=== PATIENT | female | born 1955 | race African-American/Black ===

== ENCOUNTER 2016-08-02 00:10 | Inpatient (IN) | payer OTHER ==
[2016-08-01 23:09] LABS: BASOPHIL% 0.4 % (0-2.5); EOSINOPHIL% 0.6 % (0.0-7.0); HEMATOCRIT 25.3 % (35.0-45.0); HEMOGLOBIN 7.4 gm/dL (12.0-16.0); LYMPHOCYTE# 1.3 X10e3 (1.0-3.5); LYMPHOCYTE% 18.5 % (17.0-45.0); MEAN CELL VOLUME 64.7 FL (83-96); MEAN CORPUSCULAR HGB CONC 29.4 g/dL (30-36); MEAN PLATELET VOLUME 8.7 FL (6.5-11.5); MONOCYTE# 0.4 X10e3 (0-1.0); MONOCYTE% 5.5 % (3.0-12.0); NEUTROPHIL# 5.4 X10e3 (1.5-7.1); PLATELET COUNT 294 X10e3 (140-420); RED BLOOD COUNT 3.92 X10e (3.90-5.30); RED CELL DISTRIBUTION WIDTH 18.7 % (11.0-15.5); WHITE BLOOD COUNT 7.1 X10e3 (4.0-10.5)
[2016-08-01 23:10] LABS: DIFF IND YES
[2016-08-01 23:33] LABS: ALBUMIN SERUM 4.3 g/dL (3.5-5.0); ALKALINE PHOSPHATASE 67 U/L (32-92); ALT (SGPT) 12 U/L (10-40); AST (SGOT) 21 U/L (10-42); BILIRUBIN, DIRECT 0.1 mg/dL (0.0-0.2); BILIRUBIN,INDIRECT 0.3 mg/dL (0.0-0.9); BILIRUBIN,TOTAL 0.4 mg/dL (0.2-2.0); BLOOD UREA NITROGEN 16 mg/dL (9-23); CALCIUM SERUM 8.9 mg/dL (8.4-10.2); CARBON DIOXIDE 25 mmol/L (22-31); CHLORIDE 107 mmol/L (100-111); CREATININE SERUM 0.8 mg/dL (0.6-1.4); GLOM FILT RATE Estimated ABOVE60 mL/min (>60); GLUCOSE FASTING 94 mg/dL (70-110); LIPASE 28 U/L (22-51); POTASSIUM 3.8 mmol/L (3.5-5.1); SODIUM 136 mmol/L (135-145)
[2016-08-01 23:51] LABS: ANISOCYTOSIS MOD; HYPOCHROMIA SL; PLATELET ESTIMATE NORMAL (NORMAL); POIKILOCYTOSIS SL
[2016-08-01 23:52] LABS: TARGET CELLS SL
--- NOTE | ~2016-08-02 | CT2 ---
[facility] A Service of [facility] RADIOLOGY TEXT RESULTS PATIENT: LOCO SAINI LOCATION: C2A 219- : 53 UNIT #: [id number] AGE: [address]: Zhou Nguyen MD SEX: F ORDER DR: [id number] [facility] [address]. [place], [place] [address] [id number] I MR#: [id number] Acc #: [id number] NAME: LOCO SAINI : 1955 SEX: F STUDY DATE/TIME: 08/02/2016 2:28 UNIT: C2A ROOM: 219 STUDY DESCRIPTION: CT Abd and Pelv W Cont Attending Physician: Zhou Nguyen M.D. Ordering Physician: Ed Doctor [id number] [facility] Primary Care Physician: [facility] MEDICAL IMAGING REPORT This report is preliminary unless electronic signature is present EXAM CT abdomen and pelvis 08/02/2016 INDICATION Right lower quadrant pain and back pain with burning with a bowel movement that started at 1 o'clock yesterday afternoon. History of colitis. TECHNIQUE Axial images were obtained through the abdomen and pelvis following oral and IV contrast administration. Multiplanar reformats were obtained. This CT exam was performed with one or more of the following radiation dose reduction techniques: automatic exposure control, adjustment of mA and/or kV according to patient size, and iterative reconstruction. COMPARISON Comparison made 08/09/2015. FINDINGS ABDOMEN: There is a calcified granuloma in the right lower lobe. Lung bases are otherwise clear. Gallbladder is normal. No biliary obstruction is seen. Tiny low-density lesions in the right hepatic lobe are likely cysts. These are not significantly changed. Solid organs are otherwise normal. No adenopathy or free fluid. GI tract is normal. PELVIS: The appendix is normal. The remainder of the GI tract is normal as well. There is nothing to suggest colitis. There is a 1.8 cm left ovarian cyst. This is unchanged. Lobular contour to the uterus is presumably due to leiomyomata. Urinary bladder is normal. There is degenerative disease in the lumbar spine. IMPRESSION 1. No acute findings in the abdomen or pelvis. 2. The GI tract including the appendix is within normal limits. [facility]. [facility] A Service of [facility] RADIOLOGY TEXT RESULTS PATIENT: LOCO SAINI LOCATION: C2A 219-01 : 53 UNIT #: [id number] AGE: [address]: Zhou Nguyen MD SEX: F ORDER DR: 3. Fibroid uterus. 4. Stable 1.8 cm left ovarian cysts. 5. Stable tiny hypodense lesions in the liver which are likely small benign cysts. Dictated by... Jace Malave Jr., M.D. THIS IS AN ELECTRONICALLY VERIFIED REPORT Jace Malave Jr., M.D. at 08/05/2016 6:03 AM PJ/nidhi TD: 08/02/2016 11:10 JOB #: [id number] MEDICAL IMAGING REPORT COPY
--- NOTE | ~2016-08-02 | CO ---
Unit #: [id number] #: [id number] Patient: LOCO SAINI [id number] [address] [address] [id number] I MR#: [id number] NAME: LOCO SAINI ROOM: 219 Age: 60 Sex: F Admission Date: 08/02/2016 : 1955 Attending Physician: Zhou Nguyen M.D. Primary Care Physician: [facility] Consultation Date: 08/02/2016 CONSULTATION REPORT REASON FOR CONSULTATION Severe iron deficiency anemia and right flank pain. HISTORY OF PRESENT ILLNESS The patient is a 50-year-old female with a past medical history of hypertension, migraine headaches, bipolar disorder and ischemic colitis. The patient has presented with acute right flank pain and anemia. The patient was admitted to this facility about a year ago with similar pain, but associated with rectal bleeding. She had undergone colonoscopy at the time and was found to have ischemic colitis. Since then the patient had been asymptomatic and had been doing well up until yesterday afternoon, when she developed acute right flank pain after having a bowel movement. The pain was constant and progressively worsened. Therefore, the patient presented to the emergency room for evaluation. Upon admission she was noted to have a hemoglobin of 7.4 with microcytic (1) . The patient reports fatigue, but no history of fever, chills, diarrhea, constipation, anorexia, weight loss or overt GI bleed in the form of hematemesis, melena or hematochezia. PAST MEDICAL HISTORY 1. Hypertension. 2. Bipolar disorder. 3. ADHD. 4. Migraine headaches. 5. Ischemic colitis. PAST SURGICAL HISTORY 1. Right cataract extraction. 2. Excision of right renal cyst. 3. Colonoscopy in 2016. SOCIAL HISTORY The patient lives with her ex-. She smokes less than a half pack of cigarettes daily. She drinks alcohol seldomly. No history of illicit drug use. FAMILY HISTORY None for colon, pancreatic cancer or liver disease. ALLERGIES No known drug allergies. HOME MEDICATIONS 1. Adderall. Unit #: [id number] #: [id number] Patient: LOCO SAINI 2. Lopressor. 3. Lisinopril. 4. Hydrochlorothiazide. 5. Depakote. 6. Clonidine. 7. Celexa. 8. Protonix. 9. Claritin. 10. Flonase. REVIEW OF SYSTEMS Twelve point review of systems was completed and only positive findings as noted in history of present illness. All other systems were reviewed and are negative. PHYSICAL EXAMINATION GENERAL: The patient is awake, alert and oriented. Comfortable. In no acute distress. VITALS: Stable with temperature 98, blood pressure 150/71, heart rate 59, respiratory rate 16. HEENT: No pallor. No scleral icterus. No lymphadenopathy. No peripheral edema. CHEST: Clear to auscultation bilaterally. HEART: Regular rate and rhythm. ABDOMEN: Soft and nontender. Liver and spleen not palpable. Bowel sounds normal. Slight tenderness with palpation to the low right flank. DIAGNOSTIC STUDIES IMAGING: CT of the abdomen and pelvis showed no acute findings. LABORATORY: CMP within normal limits. CBC notable for hemoglobin 6.8, initially 7.4 upon admission. The patient received one unit of packed red blood cells. Awaiting repeat CBC. MCV 64.7, MCH 18.6, platelets 240. Serum iron 5, ferritin 3 and 1% saturation. Urinalysis notable for 1+ leukocyte esterase and 5-10 WBCs. Negative for bacteria. ASSESSMENT 1. Severe iron deficiency anemia. 2. Right flank pain. 3. History of ischemic colitis. PLAN Severe iron deficiency anemia most likely secondary to chronic GI blood loss. Etiology for right flank pain is unclear at this time. Recurrent ischemic colitis is unlikely. In view of her iron deficiency anemia will recommend an upper GI endoscopy as well as repeat colonoscopy to rule out potential source of chronic GI blood loss. Will recheck hemoglobin and transfuse as needed. Will also order IV iron as well. The patient and plan of care were discussed in detail with Dr. Hale. Further recommendations to follow. Thank you very much for asking us to see this patient. We appreciate the consult. Dictated by... Wally Ortiz APRN for Vladislav Hale M.D. Unit #: [id number] #: [id number] Patient: LOCO SAINI PN/gz TD: 08/03/2016 09:35 JOB #: [id number] CONSULTATION REPORT X X CONSULTATION REPORT
--- NOTE | ~2016-08-02 | DS ---
Unit #: [id number] #: [id number] Patient: LOCO SAINI [id number] [facility] [address] [facility]. [place], [place] [address] [id number] I MR#: [id number] NAME: LOCO SAINI ROOM: 219 Age: 60 Sex: F Admission Date: 08/02/2016 : 1955 Discharge Date: 08/04/2016 Attending Physician: Zhou Nguyen M.D. Primary Care Physician: [facility], [facility] DISCHARGE SUMMARY ADMISSION DIAGNOSIS Microcytic anemia with right flank pain. DISCHARGE DIAGNOSES 1. Microcytic anemia secondary to iron deficiency. 2. Right flank pain, improved. 3. Migraine headache. 4. History of bipolar disorder. CONSULTANTS Dr. Vladislav Hale in GI consultation. PROCEDURES PERFORMED 1. The patient had an EGD done which revealed mild esophagitis and gastritis. 2. The patient had a colonoscopy done which was a normal examination. DIAGNOSTIC DATA LABORATORY: Creatinine 0.9, sodium 143, potassium 4.1. White blood cell count 4.3, hemoglobin 7.2. Platelet count was 236. Urine culture was done, which revealed less than 10,000 units growth. Vitamin B12 level was 508 and ferritin level was 3. Reticulocyte count was 1.6. IMAGING: CT scan of the abdomen and pelvis was done, which did not reveal any acute findings in the abdomen or pelvis. She had a stable 1.8 cm left ovarian cyst present. There was a stable tiny hypodense lesion in the liver, likely small benign cyst. HOSPITAL COURSE The patient is a 60-year-old female who presented to [facility] with anemia. Details are as per admission history and physical. The patient was treated with IV iron. Her hemoglobin is 7.2 today. We will transfuse her with 1 unit prior to discharge. The patient is advised to follow up with Dr. Vladislav Hale. The patient is much improved. CT scan did not reveal any acute findings. I advised the patient to follow up with primary care physician. The patient has already received one unit of packed red blood cells and we will transfuse her one more unit prior to discharge. PHYSICAL EXAMINATION GENERAL: Today the patient is comfortable. She is not in acute distress. Unit #: [id number] #: [id number] Patient: LOCO SAINI VITALS: Temperature 98, pulse 61 per minute, respiratory rate 16 per minute, blood pressure 135/76. HEENT: No conjunctival congestion. Sclerae are nonicteric. NECK: Supple. Trachea central. LUNGS: Breath sounds equal bilaterally. There are no wheezes or crackles. HEART: Regular rate and rhythm. S1 and S2. ABDOMEN: Soft and nontender. Bowel sounds are present in all four quadrants. NEUROLOGIC: The patient is alert to person, place and time. Power is 5/5 bilaterally. Sensations are grossly intact. SKIN: Warm and dry. DISCHARGE CONDITION Stable. ACTIVITY As tolerated. DISCHARGE MEDICATIONS 1. Adderall 30 mg p.o. daily, home dose. 2. Flonase 2 sprays each nostril b.i.d. 3. Depakote 500 mg p.o. t.i.d. 4. Celexa 20 mg p.o. daily. 5. Claritin 10 mg p.o. daily. 6. Toprol XL 50 mg 1 pill p.o. daily. 7. Clonidine 0.1 mg p.o. b.i.d. 8. Lisinopril 40 mg p.o. daily. 9. Protonix 40 mg p.o. daily. FOLLOWUP 1. The patient is advised to follow up with primary care physician in one week and have a CBC and BMP done. 2. The patient is advised to follow up with Dr. Vladislav Hale in three to four weeks. The plan was discussed in detail with the patient, who showed complete understanding. Dictated by... Uche Chan TD: 08/04/2016 13:41 JOB #: [id number] CC: Vladislav Hale M.D. [facility], [facility] Unit #: [id number] #: [id number] Patient: LOCO SAINI DISCHARGE SUMMARY X Zhou Nguyen MD DISCHARGE SUMMARY
--- NOTE | ~2016-08-02 | EKG ---
PATIENT: LOCO SAINI UNIT #: [id number] Ventricular Rate: 56 BPM Atrial Rate: 56 BPM P-R Interval: 202 ms QRS Duration: 74 ms Q-T Interval: 436 ms QTC Calculation(Bezet): 420 ms P [place]: 10 degrees Calculated R [place]: 46 degrees Calculated T [place]: 42 degrees Diagnosis Line: Sinus bradycardia Diagnosis Line: Minimal voltage criteria for LVH, may be normal Diagnosis Line: variant Diagnosis Line: Septal infarct , age undetermined Diagnosis Line: Abnormal ECG Diagnosis Line: When compared with ECG of 11-JAN-2015 15:19, Diagnosis Line: Septal infarct is now Present Diagnosis Line: T wave inversion now evident in Anterior leads Diagnosis Line: Confirmed by MIMI MCFARLAND MD ([id number]) on 08/03/2016 Diagnosis Line: 6:02:34 PM INTERPRETING MD: BRUNA MAST
--- NOTE | ~2016-08-02 | CO ---
Unit #: [id number] #: [id number] Patient: LOCO ORTIZ [id number] [address] [place], [place] [address] [id number] MR#: [id number] NAME: LOCO ORTIZ ROOM: 219 Age: 60 Sex: F Admission Date: 08/02/2016 : 1955 Attending Physician: Zhou Nguyen M.D. Primary Care Physician: [facility], [facility] Consultation Date: 08/02/2016 CONSULTATION REPORT ADDENDUM This is an addendum to a consultation already dictated by Dr. Gefofrey Ferrera's A.P.R.N. REASON FOR CONSULTATION Severe iron deficiency anemia and right flank pain. Ms. Ortiz is a very pleasant 50-year-old -Israeli female who has presented with severe iron deficiency anemia. It is noteworthy the patient has a history of ischemic colitis in the past but never followed up. Current CAT scan shows some CT changes and it is possible the patient may have recurrent ischemic colitis. A diagnostic upper endoscopy and a colonoscopy are warranted and will be scheduled for tomorrow. Incidentally, the patient has virtually no iron reserves and is being started on intravenous iron infusions as well. Thank you for asking me to see this pleasant woman. I appreciate the consult. Dictated by... Uche Whitley/simi TD: 08/04/2016 07:24 JOB #: [id number] CONSULTATION REPORT X Vladislav Hale MD X CONSULTATION REPORT
--- NOTE | ~2016-08-02 | OR ---
Unit #: [id number] #: [id number] Patient: LOCO SAINI [id number] [address] [address] [id number] MR#: [id number] NAME: LOCO SAINI ROOM: 219 Date of Procedure: 08/03/2016 Admission Date: 08/02/2016 Surgeon: Vladislav Hale M.D. : 1955 Attending Physician: Zhou Nguyen M.D. Primary Care Physician: [facility] OPERATIVE REPORT PRIMARY CARE PHYSICIAN [facility] PREOPERATIVE DIAGNOSIS Severe iron deficiency anemia. PROCEDURES PERFORMED Upper gastrointestinal endoscopy and biopsy as well as colonoscopy up to cecum. POSTOPERATIVE DIAGNOSES For upper endoscopy: 1. The patient had distal grade 2 erosive esophagitis. 2. Mild antral gastritis. 3. Rest of the examination up to third part of duodenum was normal. Biopsies obtained from the antrum for CLOtest. For colonoscopy: 1. Completely normal examination up to cecum with excellent preparation and good visualization. The patient did not have any polyps, diverticulosis, angiodysplasias, or hemorrhoids. The quality of the prep was excellent. RECOMMENDATIONS The patient will continue on intravenous followed by oral iron therapy. She can be discharged home from GI standpoint. SEDATION USED MAC. DESCRIPTION OF PROCEDURE Following detailed explanations of potential risks and complications of an upper endoscopy and a colonoscopy, namely perforation, bleeding, and complications related to sedation, the patient was brought to GI lab and laid in the left lateral decubitus position. Lubricated tip of the Olympus video upper endoscope was passed through the bite block into the proximal esophagus under direct vision. The entire esophageal mucosa was examined. The patient was noted to have grade 2 distal erosive esophagitis. The scope was then advanced into the gastric cavity and the latter was insufflated. Mucosa of the fundus, body, and antrum examined and mild antral gastritis noted. Pylorus was intubated with visualization of the normal duodenal bulb and second and third part of the duodenum. Upon withdrawal and retroflexion, incisura, cardia, and greater curve Unit #: [id number] #: [id number] Patient: LOCO SAINI examined and a biopsy obtained from the antrum for CLOtest. The scope was then withdrawn in the distal esophagus. The entire esophageal mucosa was examined all the way up to pharynx. No additional findings noted. The examination table was then turned by 180 degrees and the patient was positioned for a colonoscopy. A digital rectal examination was performed, which was normal. Lubricated tip of the Olympus video colonoscope was inserted through the anus and advanced under direct vision. The scope was advanced and passed up to sigmoid into descending colon. No diverticula were seen in this area. The scope tip was then navigated all the way up to cecum with visualization of the ileocecal valve and the appendiceal orifice. Preparation was excellent with good visualization and photodocumentation was obtained. Successive segments of the colonic mucosa were examined upon withdrawal and appeared unremarkable. There being no polyps, mass lesions, AVMs, or diverticula. The patient did not have any hemorrhoids at the anal verge. The scope was then withdrawn. The patient returned to the recovery area. She tolerated the procedure without any postprocedure complications. Dictated by... Uche Whitley/ryan TD: 08/04/2016 21:35 JOB #: [id number] OPERATIVE REPORT X Vladislav Hale MD X PROCEDURE OPERATIVE NOTE
--- NOTE | ~2016-08-02 | HP ---
Unit #: [id number] #: [id number] Patient: LOCO SAINI [id number] [address] [place], [place] [address] [id number] MR#: [id number] NAME: LOCO SAINI ROOM: 50633 Age: 60 Sex: F Admission Date: 08/02/2016 : 1955 Attending Physician: Deisy Obrien M.D. Primary Care Physician: [facility], [facility] HISTORY AND PHYSICAL CHIEF COMPLAINT Microcytic anemia with right flank/right lower quadrant pain. HISTORY This 60-year-old female with hypertension, migraine headaches, bipolar disorder, and previous history of ischemic colitis, is admitted for complaints of right flank pain with anemia. The patient states that she was well until yesterday when she developed pain lower right flank over the right hip region into the right groin and right lower quadrant, worse with movement. Over the past two weeks she has noted some chills. She presents to this emergency department with a hematocrit of 25.3, down from 36.8 last year with microcytic indices. She is heme negative from below. On examination there is no rash that I can see, and movements of the hips does not worsen the pain. A CT scan of the abdomen and pelvis performed, really shows no acute disease. She is heme negative from below. The patient was last admitted to this facility 07/2015 for ischemic colitis and anemia. The patient states her current symptoms are similar to her previous ischemic colitis. PAST MEDICAL HISTORY 1. Hypertension. 2. Bipolar disorder and ADHD. 3. Migraine headaches. 4. Ischemic colitis admitted 07/2015, patient underwent a colonoscopy by Dr. Hale, which revealed ischemic colitis. 5. Right cataract extraction. 6. Excision of a right renal cyst. ALLERGIES None. HOME MEDICATIONS Adderall 30 mg daily; Lopressor 50 mg b.i.d.; lisinopril 40 mg daily; HCTZ 25 mg daily; Depakote 500 mg t.i.d.; clonidine 0.1 mg b.i.d.; Celexa 20 mg daily; Protonix 40 mg daily; Claritin 10 mg daily; Flonase nasal spray. FAMILY HISTORY CAD, hypertension, diabetes mellitus. SOCIAL HISTORY The patient lives with her ex-. She smokes a few cigarettes daily. Unit #: [id number] #: [id number] Patient: LOCO SAINI Seldom drinks alcohol. REVIEW OF SYSTEMS Notable for right flank pain, which radiates to the right hip, right lower quadrant, hypertension, ischemic colitis, bipolar disorder, ADHD, migraine headaches, chills with above mentioned surgeries, tobacco use. All other systems were reviewed and are otherwise negative. PHYSICAL EXAMINATION GENERAL: Pleasant 60-year-old female currently in no acute distress. VITAL SIGNS: Temperature 98.3, pulse 73, respirations 18, blood pressure 164/89, O2 saturations 100% on room air. HEENT: Eyes - PERRLA. Extraocular movements intact. Pharynx is benign. NECK: Supple without adenopathy or thyromegaly. CHEST: Clear. CARDIAC: Normal S1 and S2 without S3, S4 or murmur. ABDOMEN: Bowel sounds are present. No hepatosplenomegaly, tenderness, or masses. There is, however, low right flank tenderness. There is no rashes over the skin, right side of the abdomen or flank. EXTREMITIES: Without clubbing, cyanosis or edema. Pedal pulses are present. Movement of the hip does not worsen the patient's pain. NEUROLOGIC: Patient is awake, alert, and oriented. Cranial nerves are intact. Equal strength throughout. DIAGNOSTIC STUDIES LABS: Hematocrit is 25.3, down from 36.8 last year with a hemoglobin of 7.4, MCV is 65, normal platelet count and white count. SMA 12 is normal. Lipase is normal. Urinalysis positive leukocyte esterase with 5-10 white cells but no bacteria. IMAGING STUDIES: CT scan - no acute disease. Fibroid uterus noted. Stable left ovarian cyst, likely stable liver cyst. ASSESSMENT 1. Microcytic anemia, currently patient is heme negative but I suspect she has intermittent bleeding. 2. Right flank to right lower quadrant/hip pain. Possibly this is radicular. There is no blisters on the skin, although I suspect this could possibly be early Herpes zoster. 3. History of ischemic colitis. Patient states that current symptoms are similar to her previous ischemic colitis. 4. ADHD and bipolar disorder. 5. Hypertension. 6. Migraine headaches. PLANS 1. Will transfuse 1 units of packed red blood cells and ask for an anemia workup prior to the transfusion. 2. GI consultation. 3. Antibiotics pending workup. 4. Will monitor patient and re-examine to make sure that patient does not develop blistering over the skin consistent with herpes zoster. 5. Hold HCTZ. 6. IV fluids and supportive treatment. 7. SCDs for DVT prophylaxis. Dictated by Unit #: [id number] #: [id number] Patient: LOCO SAINI Deisy Obrien M.D. AML/ts TD: 08/02/2016 06:48 JOB #: [id number] HISTORY AND PHYSICAL X Deisy Obrien MD X HISTORY AND PHYSICAL
[~2016-08-02 00:10] MED LIST: ACETAMINOPHEN PO; ADDERALL 10 MG10 M1 PO; ADDERALL PO; ADDERALL20 M1 PO; ALDACTAZIDE PO; ASPIRIN81 M2 PO; B-121000 MC3 PO; CATAPRES0.1 MG PO; CELEXA20 MG PO; CLARITIN10 M2 PO; CLONIDINE HCL0.1 MG PO; DEPAKOTE PO; FLAGYL PO; FLONASE ALLERG9.9 ML; HYDROCHLOROTHIA25 MG PO; LOPRESSOR PO; MACROBID100 M1 PO; NAPROSYN500 MG PO; PROTONIX PO; TOPROL XL 50 MG50 MG PO; ZESTRIL40 MG PO
[2016-08-02 00:28] LABS: URINE SOURCE CLEAN CATCH
[2016-08-02 00:36] LABS: URINE APPEARANCE CLEAR; URINE BILIRUBIN NEG (NEG); URINE BLOOD NEG (NEG); URINE COLOR YELLOW; URINE GLUCOSE NEG (NEG); URINE KETONE TRACE (NEG); URINE LEUKOCYTE ESTERASE 1+ (NEG); URINE NITRATE NEG (NEG); URINE PROTEIN NEG (NEG); URINE SPECIFIC GRAVITY 1.023 (1.003-1.035); URINE UROBILINOGEN 0.2 MG/DL (NEG)
[2016-08-02 00:39] LABS: CULTURE INDICATED? YES; URBCS1 AUWI 0-2 /[HPF] (0-2); URINE BACTERIA AUWI NEG (NEGATIVE); URINE SQUAMOUS EPITHELIAL CELL NONE SEEN /[HPF]
[2016-08-02 07:28] LABS: BASOPHIL% 0.9 % (0-2.5); EOSINOPHIL# 0.1 X10e3 (0-0.7); EOSINOPHIL% 1.2 % (0.0-7.0); HEMATOCRIT 23.5 % (35.0-45.0); LYMPHOCYTE# 1.7 X10e3 (1.0-3.5); LYMPHOCYTE% 34.6 % (17.0-45.0); MEAN CELL VOLUME 64.2 FL (83-96); MEAN CORPUSCULAR HEMOGLOBIN 18.6 PG (28-34); MEAN CORPUSCULAR HGB CONC 28.9 g/dL (30-36); MEAN PLATELET VOLUME 8.9 FL (6.5-11.5); MONOCYTE# 0.4 X10e3 (0-1.0); MONOCYTE% 8.7 % (3.0-12.0); NEUTROPHIL# 2.7 X10e3 (1.5-7.1); NEUTROPHIL% 54.6 % (40-75); PLATELET COUNT 257 X10e3 (140-420); RED BLOOD COUNT 3.66 X10e (3.90-5.30); RED CELL DISTRIBUTION WIDTH 19.3 % (11.0-15.5)
[2016-08-02 07:32] LABS: INR 1.1; PARTIAL THROMBOPLASTIN TIME 25.4 SECONDS (23.5-31.3); PROTHROMBIN TIME (PATIENT) 11.1 SECONDS (9.6-11.5)
[2016-08-02 07:38] LABS: DIFF IND NO; HEMOGLOBIN 6.8 gm/dL (12.0-16.0)
[2016-08-02 07:52] LABS: BLOOD UREA NITROGEN 12 mg/dL (9-23); BUN/CREATININE RATIO 17.14; CALCIUM SERUM 8.7 mg/dL (8.4-10.2); CARBON DIOXIDE 26 mmol/L (22-31); CHLORIDE 106 mmol/L (100-111); CREATININE SERUM 0.7 mg/dL (0.6-1.4); GLOM FILT RATE Estimated ABOVE60 mL/min (>60); GLUCOSE FASTING 92 mg/dL (70-110); POTASSIUM 3.5 mmol/L (3.5-5.1); SODIUM 138 mmol/L (135-145)
[2016-08-02 07:56] LABS: IRON SERUM 5 ug/dL (28-170); TOTAL IRON BINDING CAPACITY 402 ug/dL (269-535); TRANSFERRIN 287 mg/dL (192-382); TRANSFERRIN SATURATION 1 % (20-50)
[2016-08-02 08:11] LABS: FERRITIN 3 ng/mL (11-307)
[2016-08-02 15:22] LABS: HEMATOCRIT 26.9 % (35.0-45.0); HEMOGLOBIN 8.2 gm/dL (12.0-16.0); MEAN CORPUSCULAR HEMOGLOBIN 20.4 PG (28-34); MEAN CORPUSCULAR HGB CONC 30.5 g/dL (30-36); MEAN PLATELET VOLUME 7.4 FL (6.5-11.5); RED BLOOD COUNT 4.01 X10e (3.90-5.30); RED CELL DISTRIBUTION WIDTH 21.3 % (11.0-15.5); WHITE BLOOD COUNT 4.7 X10e3 (4.0-10.5)
[2016-08-02 15:45] LABS: BLOOD UREA NITROGEN 10 mg/dL (9-23); BUN/CREATININE RATIO 14.28; CALCIUM SERUM 8.6 mg/dL (8.4-10.2); CARBON DIOXIDE 26 mmol/L (22-31); CHLORIDE 105 mmol/L (100-111); CREATININE SERUM 0.7 mg/dL (0.6-1.4); GLOM FILT RATE Estimated ABOVE60 mL/min (>60); GLUCOSE FASTING 91 mg/dL (70-110); POTASSIUM 3.9 mmol/L (3.5-5.1); SODIUM 138 mmol/L (135-145)
[2016-08-02 15:52] LABS: HEMATOCRIT 27.2 % (35.0-45.0); HEMOGLOBIN 8.2 gm/dL (12.0-16.0)
[2016-08-02 15:58] LABS: INR 1.1; PARTIAL THROMBOPLASTIN TIME 26.3 SECONDS (23.5-31.3); PROTHROMBIN TIME (PATIENT) 11.3 SECONDS (9.6-11.5)
[2016-08-03 06:34] LABS: HEMATOCRIT 28.5 % (35.0-45.0); HEMOGLOBIN 8.3 gm/dL (12.0-16.0); MEAN CELL VOLUME 67.6 FL (83-96); MEAN CORPUSCULAR HEMOGLOBIN 19.8 PG (28-34); MEAN CORPUSCULAR HGB CONC 29.3 g/dL (30-36); RED BLOOD COUNT 4.21 X10e (3.90-5.30)
[2016-08-03 06:35] LABS: WHITE BLOOD COUNT 11.2 X10e3 (4.0-10.5)
[2016-08-03 07:34] LABS: BLOOD UREA NITROGEN 12 mg/dL (9-23); BUN/CREATININE RATIO 17.14; CALCIUM SERUM 8.6 mg/dL (8.4-10.2); CARBON DIOXIDE 25 mmol/L (22-31); CHLORIDE 105 mmol/L (100-111); CREATININE SERUM 0.7 mg/dL (0.6-1.4); GLOM FILT RATE Estimated ABOVE60 mL/min (>60); GLUCOSE FASTING 83 mg/dL (70-110); SODIUM 137 mmol/L (135-145)
[2016-08-04 07:40] LABS: HEMATOCRIT 24.5 % (35.0-45.0); HEMOGLOBIN 7.2 gm/dL (12.0-16.0); MEAN CELL VOLUME 67.3 FL (83-96); MEAN CORPUSCULAR HEMOGLOBIN 19.7 PG (28-34); MEAN CORPUSCULAR HGB CONC 29.3 g/dL (30-36); MEAN PLATELET VOLUME 8.8 FL (6.5-11.5); RED BLOOD COUNT 3.64 X10e (3.90-5.30); WHITE BLOOD COUNT 4.3 X10e3 (4.0-10.5)
[2016-08-04 07:42] LABS: BLOOD UREA NITROGEN 12 mg/dL (9-23); BUN/CREATININE RATIO 13.33; CALCIUM SERUM 8.4 mg/dL (8.4-10.2); CARBON DIOXIDE 24 mmol/L (22-31); CHLORIDE 111 mmol/L (100-111); CREATININE SERUM 0.9 mg/dL (0.6-1.4); GLOM FILT RATE Estimated ABOVE60 mL/min (>60); GLUCOSE FASTING 80 mg/dL (70-110); POTASSIUM 4.1 mmol/L (3.5-5.1); SODIUM 143 mmol/L (135-145)
== END 2016-08-04 19:09 | disposition home or self-care (01) | DRG 812 ==
LOC: CED 00:10 → CEDOF 05:30 → C2A 09:12
PROVIDERS: Emergency Medicine; Internal Medicine; Internal Medicine Gastroenterology; Nurse Practitioner
PROC: 0DB68ZX Excision of Stomach, Via Natural or Artificial Opening Endoscopic, Diagnostic (ICD-10-PCS; principal; 2016-08-03 16:34)
PROC: 0DJD8ZZ Inspection of Lower Intestinal Tract, Via Natural or Artificial Opening Endoscopic (ICD-10-PCS; 2016-08-03 16:34)
PROC: 30233N1 Transfusion of Nonautologous Red Blood Cells into Peripheral Vein, Percutaneous Approach (ICD-10-PCS; 2016-08-04)
DX: D50.9 Iron deficiency anemia, unspecified (principal); K22.10 Ulcer of esophagus without bleeding; I10 Essential (primary) hypertension; R10.31 Right lower quadrant pain; G43.909 Migraine, unspecified, not intractable, without status migrainosus; F31.9 Bipolar disorder, unspecified; F90.9 Attention-deficit hyperactivity disorder, unspecified type; M25.551 Pain in right hip; Z98.41 Cataract extraction status, right eye; F17.210 Nicotine dependence, cigarettes, uncomplicated; K29.50 Unspecified chronic gastritis without bleeding; R00.1 Bradycardia, unspecified
CPT/HCPCS: 36415; 74177; 80048; 80076; 81003; 82607; 82728; 83540; 83550; 83690; 85014; 85018; 85025; 85027; 85044; 85610; 85730; 86850; 86900; 86901; 86923; 87077; 87086; 93005; 96374; 96375; 99285; J1956; J2270; J2405; J2916; P9016; Q9967

== ENCOUNTER → 2016-11-21 | Outpatient (CLI) | payer OTHER ==
[2016-11-21 13:52] LABS: HEMATOCRIT 38.9 % (35.0-45.0); MEAN CELL VOLUME 83.8 FL (83-96); MEAN CORPUSCULAR HEMOGLOBIN 25.8 PG (28-34); MEAN CORPUSCULAR HGB CONC 30.8 g/dL (30-36); MEAN PLATELET VOLUME 9.1 FL (6.5-11.5); RED BLOOD COUNT 4.64 X10e (3.90-5.30); RED CELL DISTRIBUTION WIDTH 14.1 % (11.0-15.5); WHITE BLOOD COUNT 3.6 X10e3 (4.0-10.5)
[2016-11-21 14:07] LABS: CALCIUM SERUM 9.3 mg/dL (8.4-10.2); CREATININE SERUM 0.8 mg/dL (0.6-1.4); POTASSIUM 4.3 mmol/L (3.5-5.1)
== END | disposition home or self-care (01) ==
LOC: CLAB 12:58
PROVIDERS: Nurse Practitioner
DX: D50.9 Iron deficiency anemia, unspecified (principal)
CPT/HCPCS: 36415; 80048; 82728; 83540; 83550; 85027